=== PATIENT | male | born 1950 | race Caucasian/White ===

== ENCOUNTER 2019-04-20 07:24 | Outpatient (CLI) | payer MEDICARE, SELFPAY ==
--- NOTE | 2019-04-20 07:38 | ECHO_ITS ---
Patient Info Name: Rudy Cheung Age: 69 years : 1950 Gender: Male Ht: 76 in Wt: 210 lbs BSA: 2.27 m2 HR: 70 bpm BP: 135 / 87 mmHg Technical Quality: Good Exam Date: 04/20/2019 7:48 AM Exam Location: [facility] Patient Status: Outpatient Admit Date: 04/20/2019 Staff Ordering Physician: Jigna Dutta PAC Director Of Retail: Rocky Simmons RDCS, RT Attending Provider: Jigna Dutta PAC Referring Physician: Luzmaria MUSA; Exam Type: CA echo doppler color flow Study Info Indications R01.1 - Cardiac murmur, unspecified Complete two-dimensional, color flow and Doppler transthoracic echocardiogram is performed. Summary 1. Left ventricular systolic function is normal, estimated at 65-70%. 2. There is mildly increased left ventricular wall thickness. 3. The left ventricular diastolic function is grade I diastolic dysfunction. 4. E/e' 6 is not elevated. 5. Global lontiduinal strain is slightly abnormal at -16.8%. 6. There is severe aortic valve sclerosis. 7. There is mild aortic valve stenosis with a peak velocity of 175 cm/s, mean gradient of 4 mmHg, and aortic valve area of 1.8 cm2. 8. Moderate mitral annular calcification. 9. The aortic root size at the sinus of Valsalva is mildly dilated at 4.2 cm. Left Ventricle E/e' 6 is not elevated. Global lontiduinal strain is slightly abnormal at -16.8%. Left ventricular systolic function is normal, estimated at 65-70%. There is mildly increased left ventricular wall thickness. The left ventricular diastolic function is grade I diastolic dysfunction. Right Ventricle Right ventricular chamber dimension is normal. Right ventricular systolic function is normal. Left Atria Left atrial chamber dimension is normal. Right Atria Right atrial chamber dimension is normal. Aortic Valve The aortic valve is trileaflet. There is severe aortic valve sclerosis. There is mild aortic valve stenosis with a peak velocity of 175 cm/s, mean gradient of 4 mmHg, and aortic valve area of 1.8 cm2. There is no aortic valve regurgitation. Pulmonic Valve There is no pulmonic regurgitation. Mitral Valve Moderate mitral annular calcification. There is no mitral valve stenosis. There is no mitral valve regurgitation. Tricuspid Valve There is no tricuspid valve regurgitation. Pericardium/Pleural There is no pericardial effusion. Inferior Vena Cava Normal inferior vena cava with >50% collapse upon inspiration consistent with normal right atrial pressure, 5 mmHg. Aorta The aortic root size at the sinus of Valsalva is mildly dilated at 4.2 cm. Left Ventricular Outflow Tract Name Value Normal LVOT 2D LVOT Diameter 2.0 cm LVOT Doppler LVOT Peak Gradient 4 mmHg LVOT Mean Gradient 2 mmHg LVOT VTI 20 cm LVOT VTI/AV VTI Ratio 0.6 LVOT Stroke Volume 61 ml LVOT CO 4.0 l/min LVOT CI 1.8 l/min/m2 Pulmonic Valve
--- NOTE | 2019-04-20 08:51 | EST_ITS ---
Patient Info Name: Rudy Cheung Age: 69 years : 1950 Gender: Male Ht: 76 in Wt: 210 lbs BSA: 2.27 m2 Exam Date: 04/20/2019 9:47 AM Exam Location: [facility] Patient Status: Outpatient Admit Date: 04/20/2019 Staff Ordering Physician: Jigna Dutta Attending Provider: Jigna Dutta Exercise Technologist: Mima Eaton RDCS Exercise Physician: Juan A Crowell DO Exam Type: CA stress test treadmill Study Info Indications R07.89 - Other chest pain A treadmill exercise stress test was performed. Summary 1. 1. Negative Vamsi exercise stress test for ischemic ST changes by ECG criteria. 2. 2. Good functional capacity, achieving 9 METs of workload. 3. 3. Baseline hypertension with hypertensive response to exercise. 4. 4. Appropriate HR response to exercise. 5. 5. Appropriate HR recovery at 1 minute post exercise. 6. 6. No imaging with stress testing. 7. 7. Patient informed of the above results. Protocol: Vamsi Stress ECG Details Stage: REST Duration (min): 1 min : 22 sec Speed (mph): 0.0 Grade (%): 0 HR (bpm): 73 SBP (mmHg): 155 DBP (mmHg): 91 METS: --- Stage: REST Duration (min): 10 min : 32 sec Speed (mph): 0.0 Grade (%): 0 HR (bpm): 73 SBP (mmHg): 155 DBP (mmHg): 91 METS: --- Stage: STAGE 1 Duration (min): 1 min : 0 sec Speed (mph): 1.7 Grade (%): 10 HR (bpm): 96 SBP (mmHg): 155 DBP (mmHg): 91 METS: --- Stage: STAGE 1 Duration (min): 2 min : 0 sec Speed (mph): 1.7 Grade (%): 10 HR (bpm): 98 SBP (mmHg): 155 DBP (mmHg): 91 METS: --- Stage: STAGE 1 Duration (min): 3 min : 0 sec Speed (mph): 1.7 Grade (%): 10 HR (bpm): 105 SBP (mmHg): 183 DBP (mmHg): 70 METS: --- Stage: STAGE 2 Duration (min): 1 min : 0 sec Speed (mph): 2.5 Grade (%): 12 HR (bpm): 111 SBP (mmHg): 183 DBP (mmHg): 70 METS: --- Stage: STAGE 2 Duration (min): 2 min : 0 sec Speed (mph): 2.5 Grade (%): 12 HR (bpm): 124 SBP (mmHg): 203 DBP (mmHg): 70 METS: --- Stage: STAGE 2 Duration (min): 3 min : 0 sec Speed (mph): 2.5 Grade (%): 12 HR (bpm): 128 SBP (mmHg): 203 DBP (mmHg): 70 METS: --- Stage: STAGE 3 Duration (min): 1 min : 0 sec Speed (mph): 3.4 Grade (%): 14 HR (bpm): 139 SBP (mmHg): 236 DBP (mmHg): 79 METS: --- Stage: STAGE 3 Duration (min): 1 min : 37 sec Speed (mph): 3.4 Grade (%): 14 HR (bpm): 142 SBP (mmHg): 221 DBP (mmHg): 78 METS: --- Stage: RECOVERY Duration (min): 0 min : 22 sec Speed (mph): 1.5 Grade (%): 0 HR (bpm): 141 SBP (mmHg): 221 DBP (mmHg): 78 METS: --- Stage: RECOVERY Duration (min): 1 min : 22 sec Speed (mph): 0.0 Grade (%): 0 HR (bpm): 116 SBP (mmHg): 220 DBP (mmHg): 66 METS: --- Stage:
== END 2019-04-20 07:25 | disposition home or self-care (01) ==
PROVIDERS: PCP Family Medicine; Visit Provider Physician Assistant Medical
DX: R01.1 Cardiac murmur, unspecified (principal); R07.89 Other chest pain
CPT/HCPCS: 93017; 93306

== ENCOUNTER 2019-10-01 10:57 | Inpatient (IN) | payer MEDICARE, SELFPAY ==
--- NOTE | ~2019-10-01 | CT_ITS ---
EXAMINATION: CT abdomen pelvis w con DATE: 10/01/2019 13:17 INDICATION: Epigastric abdominal pain. TECHNIQUE: Computed tomography (CT) of the abdomen and pelvis was performed with 100 mL Omnipaque 350 intravenous contrast. Automated exposure control and iterative reconstruction technique were employe d. The dose-length product was 640.45 mGy-cm. COMPARISON: None. FINDINGS: The visualized portions of the lung bases demonstrate mild atelectasis. No pleural effusion . The heart size is normal. No pericardial effusion. The liver, gallbladder, spleen, pancreas, adrena l glands, and kidneys are normal. The prostate is mildly enlarged. There is diverticulosis of the col on without evidence of diverticulitis. The appendix is normal. There is fat stranding at the root of the small bowel mesentery. There are no pathologically enlarged lymph nodes. There is no free intrape ritoneal fluid. Prominent fat in left inguinal canal may be a small hernia. There is moderate lumbar spondylosis. IMPRESSION: 1. Fat stranding at the root of the small bowel mesentery, consistent with edema versus inflammation (mesenteric panniculitis). Reviewed, dictated and finalized at location A. IMPRESSION: 1. Fat stranding at the root of the small bowel mesentery, consistent with michael a versus inflammation (mesenteric panniculitis).
[2019-10-01 11:00] VITALS: BP 160/89; PULSE 71; RESP 20; TEMP 36.8; O2SAT 98
--- NOTE | 2019-10-01 11:15 | ECG_ITS ---
Measurements Intervals [place] Rate: 71 P: 49 SD: 185 QRS: 34 QRSD: 93 T: 45 QT: 407 QTc: 445 Interpretive Statements SINUS RHYTHM NORMAL ECG Electronically Signed On 10-01-2019 12:43:53 CDT by Juan A Crowell D.O.
[2019-10-01 11:34] LABS: Basophils Absolute Auto 0.1 K/mm3 (0.0-0.1); Basophils Percent Auto 1.3 % (0.2-1.2); Eosinophils Absolute Auto 0.5 K/mm3 (0-0.3); Eosinophils Percent Auto 8.8 % (0-4.4); Hemoglobin 15.8 g/dL (14.0-18.0); Immature Granulocyte Absolute 0.02 K/mm3 (0.00-0.031); Immature Granulocyte Percent A 0.3 % (0-0.5); Lymphocytes Absolute Auto 1.62 K/mm3 (0.9-3.2); Mean Corpuscular HGB Conc 34.3 g/dl (32-36); Mean Corpuscular Volume 90.4 fl (80-100); Monocytes Absolute Auto 0.4 K/mm3 (0.1-0.6); Monocytes Percent Auto 6.3 % (2.6-8.5); Neutrophils Absolute Auto 3.4 K/mm3 (1.3-6.7); Neutrophils Percent Auto 56.3 % (45.5-73.1); Platelet Count Result 218 k/mm3 (150-375); Red Blood Count 5.09 M/mm3 (4.6-6.20); Red Cell Distribution Width 12.8 % (11.5-14.5)
[2019-10-01 11:36] LABS: Add Urine Microscopic? NO; Appearance Urine Clear (Clear); Bilirubin Urine Negative (Negative); Blood Urine Negative (Negative); Color Urine Yellow (Yellow); Glucose Urine UA Negative (Negative); Ketones Urine Negative (Negative); Leukocyte Esterase Ur Negative LEU/UL (Negative); Nitrate Urine Negative (Negative); Protein Urine Negative (Negative); Specific Grav Ur 1.014 (1.001-1.035); Urobilinogen Urine Negative mg/dL (<2.0)
[2019-10-01 11:44] LABS: Alanine Aminotransferase 21 U/L (4-50); Albumin Level 4.5 g/dL (3.5-5.1); Alkaline Phosphatase 55 U/L (38-126); Aspartate Amino Transferase 28 U/L (17-59); Bilirubin,Total 0.7 mg/dL (0.2-1.3); Blood Urea Nitrogen 16 mg/dL (9-20); Carbon Dioxide 21 mmol/L (22-30); Chloride 106 mmol/L (98-107); Estimated CRCL calculation 71 ml/min; Estimated Glomerular Filt Rate > 60; Glucose 151 mg/dL (75-110); Potassium 3.8 mmol/L (3.4-5.0); Sodium 137 mmol/L (137-145)
[2019-10-01 11:55] LABS: Lipase 3932 U/L (23-300)
[2019-10-01] MEDS: SODIUM CHLORIDE 0.9% IV 1,000 ML 999 ML IV CONT (12:12)
--- NOTE | 2019-10-01 13:34 | ED.ABDPAIN ---
HPI - Abdominal Pain General Chief Complaint: Abdominal Pain Stated Complaint: DIZZINESS Time Seen by Provider: 10/01/19 11:24 History of Present Illness HPI narrative: Patient is a 69-year-old male who presents the ER with abdominal pain. Symptoms have been intermittent over the last week. Worse when he eats and feels full in his upper abdomen. Today the pain was severe enough where he became lightheaded and weak, his reports he became very pale. He reports he developed numbness and tingling his hands and his face when this occurred. Reports he was drinking alcohol last night and drinks alcohol often. No diarrhea. He does report that he had some bright red blood in his stool today but has history of hemorrhoids and has been applying medication for hemorrhoids recently. Related Data Home Medications Medication Instructions Recorded Confirmed No Home Medications 10/01/19 10/01/19 Allergies Allergy/AdvReac Type Severity Reaction Status Date / Time No Known Allergies Allergy Unknown Verified 04/10/19 09:25 Review of Systems Review of Systems: All systems reviewed & are unremarkable except as noted in HPI and below Constitutional: Constitutional: Denies chills, Denies fever(s) and Reports weakness ENT: Denies nasal congestion and Denies sore throat Cardiovascular: Cardiovascular: Denies chest pain, Denies rapid heart rate and Denies radiating jaw, neck or arm pain Respiratory: Respiratory: Denies cough, Denies dyspnea and Denies wheezing Gastrointestinal: Gastrointestinal: Reports abdominal pain, Denies diarrhea, Reports nausea and Denies vomiting Comments: blood streaked stool. PMFSH Family History Family History (Updated 10/01/19 @ 16:57 by Simin Stone RN) Father Hypertension Mother Hypertension Sibling Myocardial infarct Social History Social History Smoking status: Current some day smoker Tobacco type: cigars Additional smoking assessment comments: patient states he smokes cigars every few years Alcohol intake: current Drinks per week: 21 Substance use: never Gender identity (if verbalized by the patient): Male Sexual Orientation (if Verbalized by the Patient): Straight or Heterosexual Spiritual care concerns: No Exam Narrative: Exam Narrative: GENERAL: Uncomfortable-appearing, well-nourished, and in no acute distress. HEAD: Normocephalic, atraumatic. ENT: Mucous membranes moist. CHEST: Clear to auscultation. No respiratory distress. HEART: Regular rate and rhythm. Normal peripheral pulses. ABDOMEN: Soft, nontender, nondistended. EXTREMITIES: Normal range of motion. No edema. SKIN: Warm, dry, no rash. NEURO: Alert and oriented x3. Course Course Emergency Course: Admit for observation hydration. Vital Signs Vital signs: Vital Signs Temperature 98.2 F 10/01/19 11:00 Pulse Rate 71 10/01/19 11:00 Respiratory Rate 20 10/01/19 11:00 Blood Pressure 160/89 H 10/01/19 11:00 Pulse Oximetry 98 10/01/19 11:00 Temperature 98.1 F 10/01/19 18:08 Pulse Rate 83 10/01/19 18:08 Respiratory Rate 16 10/01/19 18:08 Blood Pressure 155/76 H 10/01/19 18:08 Pulse Oximetry 98 10/01/19 18:08 MDM - Abdominal Pain Lab Data Result diagrams: 10/01/19 11:26 10/01/19 11:25 Labs: Lab Results 10/01/19 10/01/19 10/01/19 Range/Units 11:25 11:26 11:26 WBC 6.0 (4.5-10.0) K/mm3 RBC 5.09 (4.6-6.20) M/mm3 Hgb 15.8 (14.0-18.0) g/dL Hct 46.0 (42.0-52.0) % MCV 90.4 (80-100) fl MCH 31.0 (26-34) pg MCHC 34.3 (32-36) g/dl RDW 12.8 (11.5-14.5) % Plt Count 218 (150-375) k/mm3 MPV 10.0 (7.4-10.4) fl Immature Gran % (Auto) 0.3 (0-0.5) % Neut % (Auto) 56.3 (45.5-73.1) % Lymph % (Auto) 27.0 (18.3-44.2) % [place] % (Auto) 6.3 (2.6-8.5) % Eos % (Auto) 8.8 H (0-4.4) % Baso % (Auto) 1.3 H (0.2-1.2) % Lymp
[2019-10-01 14:02] VITALS: BP 160/93; PULSE 79; RESP 18; O2SAT 97
--- NOTE | 2019-10-01 16:54 | PC.NURSE ---
This patient, Rudy Cheung, was admitted to [facility] Surg Room 314-01. Patient/family oriented to hospital policies and general routines including ID bracelet, bed and alarms, visiting hours, pain management, procedures, bathroom and other care routines, personal items, smoking policy, room service/diet, and visiting hours. Valuables list has been completed. Information on how to activate the Rapid Response Team has been discussed. Patient/Family are encouraged to report perceived risks to care and to ask questions if they do not understand what they are told or what they should do.
[2019-10-01] MEDS: SODIUM CHLORIDE 0.9% IV 1,000 ML 200 ML IV CONT ×2 (17:16→20:56)
[2019-10-01 18:08] VITALS: BP 155/76; PULSE 83; RESP 16; TEMP 36.7; O2SAT 98
[2019-10-01 22:00] VITALS: BP 156/73; PULSE 66; RESP 16; TEMP 36.5; O2SAT 97
--- NOTE | 2019-10-01 23:29 | PM.IMHP ---
H&P: HPI History of Present Illness Chief complaint: Abdominal pain, dizziness and tingling Narrative: Date and time of patient contact: 10/01/2019 at 9:20 p.m. Rudy Cheung is a 69 year old male with a past medical history of hyperlipidemia and heavy alcohol use who presented to the ER with abdominal pain, dizziness and tingling. He admits that he has had intermittent generalized abdominal pain with some upper abdominal fullness for the last 2-3 weeks. He reports that this morning approximately 30 minutes after he ate breakfast he went to the bathroom and had a loose bowel movement. Bowel movement was blood streaked with a moderate amount of blood in the toilet. He has had infrequent symptoms similar to this in the past that was related to hemorrhoids. He has had to use medications for hemorrhoids recently. His last colonoscopy was approximately 10 years ago. Immediately after having a bowel movement he became nauseated, lightheaded, weak and felt as if he may pass out. His noted that he was pale. He also noted some numbness and tingling to his hands and face. His thought he may be having a heart attack brought him to the ER. He has a history of frequent and somewhat heavy alcohol use. His alcohol consumption increased significantly over the last couple of months since he has not been working due to COVID-19. Prior to the pandemic the patient reported that he would drink 2-3 beers a night and up to 68 beers on the weekends. Since the pandemic he has been drinking 2-3 beers a night with 2-3 shots of whiskey. Last night his brothers came over the and he drank 6-8 beers and several shots of whiskey. In hindsight he recognizes that his symptoms of abdominal discomfort do seem to correlate with the days that he has been drinking more alcohol. He reports that he feels as if he just over indulged yesterday. He denies any chest pain or shortness of breath. He has not had any cough or congestion. He reports that his pain was a 7/10 in intensity at its worst and is currently completely resolved. His nausea has completely resolved. Review of Systems Review of Systems: Narrative: 12 systems were reviewed with pertinent positives and negatives per HPI. Except as documented in the HPI, all other systems were reviewed and are negative. [facility] Past Medical History Medical History (Updated 10/01/19 @ 23:34 by Clarisa Cardenas DO) Aortic valve stenosis Mild noted on echocardiogram from March 2019 Mildly dilated aortic root 4.2 cm, EF 65-70%, grade 1 diastolic dysfunction Diastolic dysfunction Hypercholesterolemia Hypertensive response to exercise Surgical History Surgical History (Updated 10/01/19 @ 23:34 by Clarisa Cardenas DO) History of colonoscopy Patient reports normal colonoscopy in approximately 2009 History of detached retina repair Left eye Family History Family History (Updated 10/01/19 @ 16:57 by Simin Stone RN) Father Hypertension Mother Hypertension Sibling Myocardial infarct Social History Social History (Updated 10/01/19 @ 23:38 by Clarisa Cardenas DO) Social History: Primary care physician: Dr. Ismael Gomez Code status: Full code Smoking status: Current some day smoker Tobacco type: cigars Additional smoking assessment comments: patient states he smokes cigars every few years Alcohol intake: current Drinks per week: 21 Alcohol use details: He drinks 2-3 beers a day and several shots of whiskey. On the weekends he will drink a 6 pack or more along with some whiskey. Substance use: never Living arrangements: with family Additional living arrangements comments: The patient lives in [place] with his of 26 years. They have 4 adult children who are healthy. 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 Gender identity (if verbalized by the patient): Male Sexual Orientation (if Verbalized by
[2019-10-02] MEDS: SODIUM CHLORIDE 0.9% IV 1,000 ML 200 ML IV CONT ×2 (02:00→09:06)
[2019-10-02 06:00] VITALS: BP 140/72; PULSE 66; RESP 16; TEMP 36.2; O2SAT 99
[2019-10-02 06:14] LABS: Hematocrit 41.7 % (42.0-52.0); Mean Corpuscular HGB Conc 33.6 g/dl (32-36); Mean Corpuscular Hemoglobin 30.8 pg (26-34); Mean Corpuscular Volume 91.6 fl (80-100); Mean Platelet Volume 9.8 fl (7.4-10.4); Platelet Count Result 201 k/mm3 (150-375); Red Blood Count 4.55 M/mm3 (4.6-6.20); Red Cell Distribution Width 12.9 % (11.5-14.5)
[2019-10-02 06:26] LABS: Blood Urea Nitrogen 13 mg/dL (9-20); Calcium 8.1 mg/dL (8.4-10.2); Carbon Dioxide 24 mmol/L (22-30); Chloride 111 mmol/L (98-107); Estimated CRCL calculation 71 ml/min; Estimated Glomerular Filt Rate > 60; Glucose 101 mg/dL (75-110); Lipase 104 U/L (23-300); Sodium 138 mmol/L (137-145)
[2019-10-02] MEDS: ENOXAPARIN 40 MG/0.4 ML SYRINGE SUB-Q (08:21)
[2019-10-02 14:00] VITALS: BP 145/88; PULSE 58; RESP 16; TEMP 36.9; O2SAT 98
--- NOTE | 2019-10-02 14:43 | PM.DS ---
DS: Admitting Diagnosis Admitting Diagnosis Admitting Diagnosis: Acute pancreatitis without necrosis or infection, unspecified DS: Discharge Diagnosis Discharge Diagnosis (1) Acute pancreatitis: Code(s): K85.90 - Acute pancreatitis without necrosis or infection, unspecified Status: Acute (2) Alcohol abuse: Code(s): F10.10 - Alcohol abuse, uncomplicated Status: Acute (3) Elevated blood pressure reading without diagnosis of hypertension: Code(s): R03.0 - Elevated blood-pressure reading, without diagnosis of hypertension Status: Acute DS: Summary Hospital Course Reason for hospitalization: The patient is a 69-year-old Man with a history of hyperlipidemia and heavy alcohol use, who presented to the emergency room with epigastric abdominal pain. Patient states he drank a lot of beer and whiskey on Wednesday and then on Wednesday morning he woke having abdominal pain. He had a bowel movement and afterwards had some numbness and tingling to his arms and felt lightheaded and nauseous and decided to come to the emergency room. Initial vital signs showed temperature of 98.2?, blood pressure 160/89 heart rate 71, respiratory rate 20, oxygen saturation 98% on room air. Labs showed normal CBC with differential, normal CMP, other than elevated glucose at 151. Lipase was 3932. CT scan of abdomen showed fat stranding at the root of the small bowel mesentery, consistent with edema versus inflammation (mesenteric panniculitis), which is most likely secondary to acute pancreatitis versus gastroenteritis. The patient was admitted into the hospital, for IV fluids and placed NPO. This morning on the patient's labs his lipase normalized and he was advance from a clear liquid diet to a low-fat diet without any issues. The patient is back to his baseline and is ready to be discharged home. Educated patient to quit drinking alcohol to prevent further pancreatitis episodes and hospitalizations. Will have him follow-up with his primary care provider within 1 week of discharge. Consider starting the patient on a hypertensive agent because he has been having mildly elevated blood pressures while hospitalized. His recent echocardiogram also showed he has mild LVH which could be secondary to uncontrolled high blood pressure over a period time. The patient's symptoms resolved quicker than expected. Normally pancreatitis takes a few days to slowly advance there diet. Status at Discharge Cognitive/behavioral status at discharge: Stable, improved. Time Spent with Patient Time attestation: Total time spent providing and/or coordinating discharge services: Time spent: Greater than 30 minutes Exam Narrative: Exam Narrative: General: 69-year-old man laying flat in bed watching TV. Appears comfortable. In no acute distress. Skin: No jaundice or cyanosis. Good skin turgor. Neck: Full range of motion. Supple. Respiratory: Lungs are clear to auscultation bilaterally. No bony chest wall tenderness. Cardiovascular: The heart has a regular rate and rhythm without murmur. Lower extremities: No lower extremity edema. Distal pulses are easily palpated. No calf tenderness to palpation. Gastrointestinal: The abdomen is soft, nontender and nondistended with active bowel sounds. Psychiatric: Lucid and oriented. Memory intact. Neurologic: No focal deficits. Speech is clear. No facial drooping. DS: Data Data Completed and Pending Labs on day of discharge: Labs from last 24 hours 10/02/19 10/02/19 05:53 05:53 WBC 8.0 RBC 4.55 L Hgb 14.0 Hct 41.7 L MCV 91.6 MCH 30.8 MCHC 33.6 RDW 12.9 Plt Count 201 MPV 9.8 Sodium 138 Potassium 4.0 Chloride 111 H Carbon Dioxide 24 BUN 13 Creatinine 1.10 Estim Creat Clear Calc 71 Estimated GFR > 60 Glucose 101 Calcium 8.1 L Lipase 104 Discharge Plan Discharge Attending physician on dis
== END 2019-10-02 15:15 | disposition home or self-care (01) | DRG 440 ==
LOC: ANHED 14:11 → ANH3MEDSUR 15:39
PROVIDERS: Internal Medicine; Admitting Provider Family Medicine; Emergency Provider Emergency Medicine; PCP Family Medicine; Visit Provider Physician Assistant
DX: K85.20 Alcohol induced acute pancreatitis without necrosis or infection (principal); F10.10 Alcohol abuse, uncomplicated; R03.0 Elevated blood-pressure reading, without diagnosis of hypertension; E78.5 Hyperlipidemia, unspecified; F17.290 Nicotine dependence, other tobacco product, uncomplicated
CPT/HCPCS: 36415; 74177; 80048; 80053; 81003; 83690; 85025; 85027; 93005; 96360; 99285; J1650; J7030; Q9967

== ENCOUNTER → 2020-08-29 15:29 | Outpatient (CLI) | payer MEDICARE, SELFPAY ==
--- NOTE | ~2020-08-29 | XR_ITS ---
XR hand LT min 3V 08/29/2020 15:53 Indication: Left hand pain Procedure: 3 views left hand Comparison: No prior studies for comparison. Findings: There is mild polyarticular osteoarthritis no fracture or traumatic malalignment. No focal soft tissue abnormality. No foreign bodies. 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 Reviewed, dictated and finalized at location A. 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
== END ==
PROVIDERS: PCP Family Medicine; Visit Provider Nurse Practitioner Family
DX: M19.042 Primary osteoarthritis, left hand (principal)
CPT/HCPCS: 73130

== ENCOUNTER → 2021-03-11 10:45 | Outpatient (CLI) | payer MEDICARE, SELFPAY ==
[2021-03-12 02:05] LABS: SARS-CoV-2 RNA PCR Negative
== END ==
PROVIDERS: PCP Family Medicine; Visit Provider Nurse Practitioner Family
DX: R68.89 Other general symptoms and signs (principal); Z20.822 Contact with and (suspected) exposure to COVID-19
CPT/HCPCS: C9803; U0003; U0005

== ENCOUNTER 2021-08-04 00:44 | Day surgery (SDC) | payer MEDICARE, SELFPAY ==
[2021-07-14 15:06] VITALS: BMI 25.4
--- NOTE | 2021-08-01 14:48 | PM.HPGS ---
History of Present Illness History of Present Illness Consent: Risks, benefits, and alternatives have been discussed and questions answered. Patient agrees to proceed with procedure. Chief complaint: neoplasm screening Narrative: Rudy Cheung is a 71 year old male Referred for colon cancer screening. Review of Systems Review of Systems: All systems reviewed & are unremarkable except as noted in HPI and below PMFSH Past Medical History Medical History Aortic valve stenosis Mild noted on echocardiogram from March 2019 Mildly dilated aortic root 4.2 cm, EF 65-70%, grade 1 diastolic dysfunction BMI 26.0-26.9,adult Diastolic dysfunction Hypercholesterolemia Hypertensive response to exercise Pancreatitis Trigger finger, right ring finger Trigger thumb of left hand Surgical History Surgical History History of colonoscopy Patient reports normal colonoscopy in approximately 2009 History of detached retina repair Left eye Family History Family History Father Hypertension Mother Hypertension Sibling Myocardial infarct Faternal twin brother Social History Social History Social History: He is 1 of 8 children. His foot terminal twin brother has a history of ND. All of his other siblings are reportedly healthy. His parents lived to age is 89 and 90. Primary care physician: Dr. Ismael Gomez Code status: Full code Smoking status: Never smoker Tobacco type: cigars Additional smoking assessment comments: patient states he smokes cigars every few years Alcohol intake: current Drinks per week: 7 Alcohol use details: He drinks 2-3 beers a day and several shots of whiskey. On the weekends he will drink a 6 pack or more along with some whiskey. Substance use: never Substance use type: does not use Living arrangements: other Additional living arrangements comments: The patient lives in [place] with his of 26 years. They have 4 adult children who are healthy. 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 Gender identity (if verbalized by the patient): Male Sexual Orientation (if Verbalized by the Patient): Straight or Heterosexual Spiritual care concerns: No Meds Home Medications and Allergies Home Medications Medication Instructions Recorded Confirmed Type No Home Medications 07/14/21 07/14/21 History Allergies Allergy/AdvReac Type Severity Reaction Status Date / Time No Known Allergies Allergy Unknown Verified 08/04/21 06:58 Exam Const: General: alert Orientation/consciousness: patient oriented x3 Resp: Auscultation: clear to auscultation bilaterally Cardio: Rhythm: regular rhythm GI: GI Palp: Yes Soft to palpation and No Tenderness to palpation present (GI) Neuro: General: patient oriented x3 Assessment and Plan Assessment and plan (1) Screening for colon cancer: Code(s): Z12.11 - Encounter for screening for malignant neoplasm of colon Status: Acute Assessment and Plan: Colonoscopy with possible biopsy or polypectomy or cautery or injection of substances.
[2021-08-04 06:59] VITALS: BP 140/82; PULSE 76; RESP 18; TEMP 36.6; O2SAT 99
[2021-08-04] MEDS: LACTATED RINGERS 1,000 ML 150 ML IV CONT (07:14)
--- NOTE | 2021-08-04 07:39 | WPDANESEPPF ---
Anes - Initial Pre Proc Eval Procedure: Operation Date: 08/04/21 08:00 Proposed Procedures p Screening Colonoscopy - Sharath Jonas MD Date/Time: 08/04/21 07:39 Surgeon: Sharath Jonas MD Pre Op Diagnosis: neoplasm screening Patient Data Age: 71 Gender: M Height: 1.93 m Weight: 91.9 kg Last Vital Signs Temp 97.8 F 08/04/21 06:59 Pulse 76 08/04/21 06:59 Resp 18 08/04/21 06:59 BP 140/82 08/04/21 06:59 Pulse Ox 99 08/04/21 06:59 Allergies Allergy/AdvReac Type Severity Reaction Status Date / Time No Known Allergies Allergy Unknown Verified 08/04/21 06:58 Home Medications Medication Instructions Recorded Confirmed Type No Home Medications 07/14/21 07/14/21 History Patient hx anesthesia problems: none Family hx anesthesia problems: none Results Review: All pre-operative results and documents have been reviewed as part of the pre-operative evaluation. [facility] Past Medical History Medical History Aortic valve stenosis Mild noted on echocardiogram from March 2019 Mildly dilated aortic root 4.2 cm, EF 65-70%, grade 1 diastolic dysfunction BMI 26.0-26.9,adult Diastolic dysfunction Hypercholesterolemia Hypertensive response to exercise Pancreatitis Trigger finger, right ring finger Trigger thumb of left hand Surgical History Surgical History History of colonoscopy Patient reports normal colonoscopy in approximately 2009 History of detached retina repair Left eye Family History Family History Father Hypertension Mother Hypertension Sibling Myocardial infarct Faternal twin brother Social History Social History Social History: He is 1 of 8 children. His foot terminal twin brother has a history of [place]. All of his other siblings are reportedly healthy. His parents lived to age is 89 and 90. Primary care physician: Dr. Ismael Gomez Code status: Full code Smoking status: Never smoker Tobacco type: cigars Additional smoking assessment comments: patient states he smokes cigars every few years Alcohol intake: current Drinks per week: 7 Alcohol use details: He drinks 2-3 beers a day and several shots of whiskey. On the weekends he will drink a 6 pack or more along with some whiskey. Substance use: never Substance use type: does not use Living arrangements: other Additional living arrangements comments: The patient lives in [place] with his of 26 years. They have 4 adult children who are healthy. 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 Gender identity (if verbalized by the patient): Male Sexual Orientation (if Verbalized by the Patient): Straight or Heterosexual Spiritual care concerns: No Anes - Eval Final PreProcedure Day of Procedure 08/04/21 07:39 Patient weight: normal Heart: regular rate and rhythm and murmur Lungs: clear to auscultation Airway: Mallampati scale class II Neurological: alert and oriented Last oral intake: >/= 8 hours ASA classification: III Emergent: no Anesthetic plan: proceed Anesthesia type and monitoring: general GIVS and standard monitoring Results Review: All pre-operative results and documents have been reviewed as part of the pre-operative evaluation. Informed Consent: The patient's anesthetic plan and its attendant risks and benefits were discussed with the patient/family/POA. Questions were solicited and answers provided to the satisfaction of the patient/family/POA.
[2021-08-04 08:17] VITALS: BP 126/84; PULSE 71; RESP 13; O2SAT 98
[2021-08-04 08:27] VITALS: BP 129/85; PULSE 70; RESP 12; O2SAT 98
[2021-08-04 08:37] VITALS: BP 134/89; PULSE 71; RESP 22; O2SAT 97
== END 2021-08-04 08:48 | disposition home or self-care (01) ==
PROVIDERS: PCP Family Medicine; Visit Provider Internal Medicine Gastroenterology
PROC: 0DJD8ZZ Inspection of Lower Intestinal Tract, Via Natural or Artificial Opening Endoscopic (ICD-10-PCS; CPT 45378; principal; 2021-08-04 08:00)
DX: Z12.11 Encounter for screening for malignant neoplasm of colon (principal); K64.8 Other hemorrhoids; K57.30 Diverticulosis of large intestine without perforation or abscess without bleeding; E78.00 Pure hypercholesterolemia, unspecified; I35.0 Nonrheumatic aortic (valve) stenosis; Z72.0 Tobacco use
CPT/HCPCS: G0121; J2704; J7120

== ENCOUNTER → 2022-07-07 11:14 | Outpatient (CLI) | payer MEDICARE, SELFPAY ==
--- NOTE | ~2022-07-07 | XR_ITS ---
Cervical Spine: AP, lateral, open-mouth views Clinical History: Pain Findings: The normal lordotic curve is maintained. No fracture identified. Minimal grade 1 retrolisth esis of C3 over C4 noted. There is moderate to advanced degenerative disc narrowing at C5-C6 and C6-C 7. There is uncovertebral degenerative change and facet joint degenerative change from C3 through C6. Pre-vertebral soft tissues are unremarkable. Impression: Moderate degenerative spondylosis, as above. Minimal grade 1 retrolisthesis of C3 over C4. Reviewed, dictated and finalized at location M. Impression: Moderate degenerative spondylosis, as above. Minimal grade 1 retrolisthesis of C3 over C4.
== END ==
PROVIDERS: PCP Family Medicine; Visit Provider Physician Assistant Medical
DX: M47.892 Other spondylosis, cervical region (principal); M43.12 Spondylolisthesis, cervical region
CPT/HCPCS: 72040

== ENCOUNTER 2022-07-28 08:33 | Outpatient (CLI) | payer MEDICARE, SELFPAY ==
[2022-07-28 09:13] LABS: Hematocrit 46.5 % (42.0-52.0); Hemoglobin 15.7 g/dL (14.0-18.0); Mean Corpuscular HGB Conc 33.8 g/dl (32-36); Mean Corpuscular Hemoglobin 30.7 pg (26-34); Mean Corpuscular Volume 90.8 fl (80-100); Mean Platelet Volume 9.7 fl (7.4-10.4); Platelet Count Result 228 k/mm3 (150-375); Red Blood Count 5.12 M/mm3 (4.6-6.20); Red Cell Distribution Width 13.1 % (11.5-14.5); White Blood Count 5.1 K/mm3 (4.5-10.0)
[2022-07-28 09:25] LABS: Alanine Aminotransferase 35 U/L (6-50); Albumin Level 4.4 g/dL (3.5-5.1); Alkaline Phosphatase 50 U/L (38-126); Amylase 63 U/L (30-110); Anion Gap 5 mmol/L (8-16); Aspartate Amino Transferase 37 U/L (17-59); Bilirubin,Total 0.6 mg/dL (0.2-1.3); Blood Urea Nitrogen 16 mg/dL (9-20); Calcium 8.9 mg/dL (8.4-10.2); Carbon Dioxide 27 mmol/L (22-30); Chloride 107 mmol/L (98-107); Cholesterol 227 mg/dL (0-200); Estimated Glomerular Filt Rate 60; Glucose 118 mg/dL (65-110); HDL Direct 31 mg/dL; Lipase 68 U/L (23-300); Potassium 4.3 mmol/L (3.4-5.0); Sodium 139 mmol/L (137-145); Triglycerides 226 mg/dL (<150)
[2022-07-28 09:37] LABS: LDL Cholesterol Direct 129 mg/dL
[2022-07-28 09:56] LABS: Prostate Specific Antigen 2.3 ng/mL (< OR = 4.0)
[2022-07-28 10:19] LABS: Vitamin D 25 Hydroxy 34.4 ng/mL
[2022-07-30 07:43] LABS: Hemoglobin A1C 5.9 % (<5.7)
[2022-08-02 16:06] LABS: Testosterone Free 83.2 pg/mL (30.0-135.0); Testosterone Total 607 ng/dL (250-1100)
== END 2022-07-28 08:34 | disposition home or self-care (01) ==
PROVIDERS: PCP Family Medicine; Visit Provider Nurse Practitioner Family
DX: K85.90 Acute pancreatitis without necrosis or infection, unspecified (principal); R79.89 Other specified abnormal findings of blood chemistry; Z12.5 Encounter for screening for malignant neoplasm of prostate; Z13.29 Encounter for screening for other suspected endocrine disorder; I10 Essential (primary) hypertension
CPT/HCPCS: 36415; 80053; 80061; 82150; 82306; 83036; 83690; 84153; 84402; 84403; 84443; 85027; G0103

== ENCOUNTER 2023-03-07 10:33 | Emergency (ER) | payer MEDICARE, SELFPAY ==
[2023-03-07 10:59] VITALS: BP 179/98; PULSE 72; RESP 16; TEMP 36.8; O2SAT 98
--- NOTE | 2023-03-07 11:15 | ED.URI ---
HPI - URI/Sore Throat General Chief Complaint: Upper Respiratory Infection Stated Complaint: tired,sinus drainage,bp high Time Seen by Provider: 03/07/23 11:46 Source: patient and RN notes reviewed Mode of arrival: ambulatory Limitations: no limitations History of Present Illness HPI Narrative: 9-year-old male presents with concern for fatigue, sinus drainage, increased blood pressure. Reports symptoms started about 2 and half weeks ago. He denies any particular cough, sinus congestion ear pain, sore throat. He reports he has appointment with his doctor on Wednesday, he does wanted to see if he had COVID. MD elicited complaint: other (Fatigue) Related Data Allergies Allergy/AdvReac Type Severity Reaction Status Date / Time No Known Allergies Allergy Unknown Verified 03/07/23 10:51 Review of Systems Review of Systems: CONSTITUTIONAL: Reports malaise, fatigue. Denies chills, sweats, or fever. EYES: Denies visual changes, redness, or discharge. ENT: Reports rhinorrhea. Denies congestion, sinus pain, otalgia and sore throat. CARDIOVASCULAR: Denies chest pain, palpitations, or edema. RESPIRATORY: Denies cough. Denies dyspnea. GASTROINTESTINAL: Denies abdominal pain, nausea, vomiting, diarrhea SKIN: Denies rash or itching. MUSCULOSKELETAL: Denies myalgia. NEUROLOGIC: Denies headache. All systems reviewed & are unremarkable except as noted in HPI and below [facility] Past Medical History Medical History Aortic valve stenosis Mild noted on echocardiogram from March 2019 Mildly dilated aortic root 4.2 cm, EF 65-70%, grade 1 diastolic dysfunction BMI 26.0-26.9,adult Diastolic dysfunction Hypercholesterolemia Hypertensive response to exercise Pancreatitis Trigger finger, right ring finger Trigger thumb of left hand Surgical History Surgical History History of colonoscopy Patient reports normal colonoscopy in approximately 2009 History of detached retina repair Left eye Family History Family History Father Hypertension Mother Hypertension Head injury Alzheimer's disease Sibling Myocardial infarct Faternal twin brother Sibling Acute myocardial infarction Social History Social History (Reviewed 07/23/22 @ 09:36 by HALLEY Briggs Social History: He is 1 of 8 children. His foot terminal twin brother has a history of [place]. All of his other siblings are reportedly healthy. His parents lived to age is 89 and 90. Primary care physician: Dr. Ismael Gomez Code status: Full code Smoking status: Former smoker Tobacco type: cigars Second hand tobacco smoke exposure: Yes Additional smoking assessment comments: patient states he smokes cigars every few years Alcohol intake: current Drinks per week: 7 Alcohol use details: He drinks 2-3 beers a day and several shots of whiskey. On the weekends he will drink a 6 pack or more along with some whiskey. Substance use: never Substance use type: does not use Lack of Transportation: No Lack of Food: Never True Current Housing: I Have Housing Concerned About Future Housing: No Difficulty Paying Gas/Electric Bills: No Difficulty Paying for Meds: No Currently Unemployed: No Education: Bachelor's Degree Difficulty w/ Childcare or Family Care: No Living arrangements: with family Additional living arrangements comments: The patient lives in [place] with his of 26 years. They have 4 adult children who are healthy. 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 Gender identity (if verbalized by the patient): Male Sexual Orientation (if Verbalized by the Patient): Straight or Heterosexual Spiritual care concerns: No Comm
== END 2023-03-07 12:02 | disposition home or self-care (01) ==
PROVIDERS: Emergency Provider Nurse Practitioner; PCP Family Medicine
DX: R53.83 Other fatigue (principal); Z20.822 Contact with and (suspected) exposure to COVID-19; I35.0 Nonrheumatic aortic (valve) stenosis; E78.00 Pure hypercholesterolemia, unspecified
CPT/HCPCS: 87426; 87804; 99213; C9803; G0463

== ENCOUNTER 2023-03-13 08:45 | Outpatient (CLI) | payer MEDICARE, SELFPAY ==
[2023-03-13 09:11] LABS: Hematocrit 48.4 % (42.0-52.0); Hemoglobin 15.6 g/dL (14.0-18.0); Mean Corpuscular HGB Conc 32.2 g/dl (32-36); Mean Corpuscular Hemoglobin 30.8 pg (26-34); Mean Corpuscular Volume 95.5 fl (80-100); Mean Platelet Volume 9.2 fl (7.4-10.4); Platelet Count Result 246 k/mm3 (150-375); Red Blood Count 5.07 M/mm3 (4.6-6.20); Red Cell Distribution Width 12.5 % (11.5-14.5); White Blood Count 7.4 K/mm3 (4.5-10.0)
[2023-03-13 10:10] LABS: Vitamin D 25 Hydroxy 34.4 ng/mL
[2023-03-13 11:16] LABS: Alanine Aminotransferase 27 U/L (6-50); Albumin Level 4.3 g/dL (3.5-5.1); Alkaline Phosphatase 51 U/L (38-126); Anion Gap 9 mmol/L (8-16); Aspartate Amino Transferase 31 U/L (17-59); Bilirubin,Total 0.6 mg/dL (0.2-1.3); Blood Urea Nitrogen 18 mg/dL (9-20); Calcium 9.6 mg/dL (8.4-10.2); Carbon Dioxide 26 mmol/L (22-30); Chloride 105 mmol/L (98-107); Cholesterol 252 mg/dL (0-200); Estimated Glomerular Filt Rate 60; Glucose 113 mg/dL (65-110); HDL Direct 28 mg/dL; Potassium 4.6 mmol/L (3.4-5.0); Sodium 140 mmol/L (137-145); Triglycerides 175 mg/dL (<150)
[2023-03-13 11:27] LABS: LDL Cholesterol Direct 153 mg/dL
[2023-03-13 11:44] LABS: Prostate Specific Antigen 2.1 ng/mL (< OR = 4.0)
[2023-03-16 08:13] LABS: CMV IgM Antibody <30.00 AU/mL (<30.00)
[2023-03-17 15:42] LABS: CMV IgG Antibody <0.60 U/mL (<0.60)
[2023-03-17 19:36] LABS: EBV Nuclear Ab Antibody <18.00 U/mL (<18.00); EBV Nuclear Ab Interpretation Recent; EBV Virus Capsid Ag IgM Ab <36.00 U/mL (<36.00)
== END 2023-03-13 08:46 | disposition home or self-care (01) ==
PROVIDERS: PCP Family Medicine; Visit Provider Nurse Practitioner Family
DX: R53.83 Other fatigue (principal); E55.9 Vitamin D deficiency, unspecified; I10 Essential (primary) hypertension; Z12.5 Encounter for screening for malignant neoplasm of prostate; F10.10 Alcohol abuse, uncomplicated; E78.00 Pure hypercholesterolemia, unspecified
CPT/HCPCS: 36415; 80053; 80061; 82306; 84153; 84443; 85027; 86644; 86645; 86664; 86665; G0103

== ENCOUNTER 2023-07-14 09:46 | Outpatient (CLI) | payer MEDICARE, SELFPAY ==
--- NOTE | ~2023-07-14 | XR_ITS ---
EXAMINATION: XR lumbar spine 2-3V DATE: 07/14/2023 10:01 INDICATION: Anesthesia of skin. TECHNIQUE: 3 views of the lumbar spine including standing views were obtained. COMPARISON: CT abdomen and pelvis 10/01/2019 FINDINGS: There is 8 degrees levocurvature of lumbar spine. S1 is a transitional segment. There is 3 mm retrolisthesis of L2 on L3 and L3 on L4. Vertebral body heights are normal. There is mildly decrea sed disc height at L3-L4 and moderately decreased disc height at L5-S1. There is multilevel severe fa cet joint osteoarthritis. IMPRESSION: 1. Moderate lumbar spondylosis. Reviewed, dictated and finalized at location E.
== END 2023-07-14 09:47 ==
PROVIDERS: PCP Family Medicine; Visit Provider Physician Assistant
DX: R20.0 Anesthesia of skin (principal); R20.2 Paresthesia of skin; M47.896 Other spondylosis, lumbar region
CPT/HCPCS: 72100

== ENCOUNTER 2023-08-11 13:12 | Outpatient (CLI) | payer MEDICARE, SELFPAY ==
--- NOTE | 2023-08-11 14:20 | NEURO_ITS ---
Impression: # Complains of numbness in lower extremities. Non-diabetic. # Motor/Sensory axonal neuropathy. # Mildly abnormal needle/EMG. # Clinical correlation recommended. Nerve Conduction Studies Anti Sensory Summary Table Stim Site NR Peak (ms) P-T Amp (?V) Site1 Site2 Delta-P (ms) Dist (cm) Woody (m/s) Left Sup Fibular Anti Sensory (Ant Lat Mall) NO RESPONSE 14 cm NR 14 cm Ant Lat Mall 16.0 Right Sup Fibular Anti Sensory (Ant Lat Mall) 14 cm 3.4 15.1 14 cm Ant Lat Mall 3.4 16.0 47 Left Sural Anti Sensory (Lat Mall) NO RESPONSE Calf NR Calf Lat Mall 16.0 Right Sural Anti Sensory (Lat Mall) NO RESPONSE Calf NR Calf Lat Mall 16.0 Motor Summary Table Stim Site NR Onset (ms) O-P Amp (mV) Site1 Site2 Delta-0 (ms) Dist (cm) Woody (m/s) Left Peroneal Motor (Vastus Med) Ankle 4.4 2.2 Popit Ankle 11.6 47.0 41 Popit 16.0 5.0 Right Peroneal Motor (Vastus Med) Ankle 4.1 6.7 Popit Ankle 11.8 48.0 41 Popit 15.9 5.0 Left Tibial Motor (Abd Monsivais Brev) Ankle 4.8 2.5 Knee Ankle 11.1 48.0 43 Knee 15.9 1.6 Right Tibial Motor (Abd Monsivais Brev) Ankle 4.8 1.0 Knee Ankle 12.7 51.0 40 Knee 17.5 1.9 F Wave Studies NR F-Lat (ms) L-R F-Lat (ms) Left Peroneal (Mrkrs) (EDB) 66.13 1.33 Right Peroneal (Mrkrs) (EDB) 67.46 1.33 Left Tibial (Mrkrs) (Abd Hallucis) 68.01 0.41 Right Tibial (Mrkrs) (Abd Hallucis) 68.41 0.41 EMG Side Muscle Nerve Root Ins Act Fibs Amp Dur Recrt Comment Right AntTibialis Dp Br Fibular L4-5 Nml Nml Nml Nml Nml Right Gastroc Tibial S1-2 Nml Nml Nml Nml Nml Right Fibularis Long Sup Br Fibular L5-S1 Nml Nml Nml Nml Nml Right Flex Dig Long Tibial L5-S2 Nml Nml Nml Nml Nml Right Ext Dig Brev Dp Br Fibular L5, S1 Nml Nml Nml >12ms +1 Left AntTibialis Dp Br Fibular L4-5 Nml Nml Nml Nml Nml Left Gastroc Tibial S1-2 Nml Nml Nml Nml Nml Left Fibularis Long Sup Br Fibular L5-S1 Nml Nml Nml Nml Nml Left Flex Dig Long Tibial L5-S2 Nml Nml Nml Nml Nml Left Ext Dig Brev Dp Br Fibular L5, S1 Nml Nml Nml >12ms +1 Right QuadratusFem QuadFemoris L4-5, S1 Nml Nml Nml Nml Nml Left QuadratusFem QuadFemoris L4-5, S1 Nml Nml Nml Nml Nml MTDD
== END 2023-08-11 13:13 | disposition home or self-care (01) ==
PROVIDERS: PCP Family Medicine; Visit Provider Physician Assistant
DX: R20.0 Anesthesia of skin (principal); R20.2 Paresthesia of skin
CPT/HCPCS: 95886; 95910

== ENCOUNTER 2023-12-22 06:59 | Outpatient (CLI) | payer MEDICARE, SELFPAY ==
[2023-12-22 07:51] LABS: Glucose Fasting 118 mg/dL
[2023-12-22 08:47] LABS: Glucose 1 Hour 240 mg/dL
[2023-12-22 09:01] LABS: Folic Acid > 20.0 ng/mL (2.76->20)
[2023-12-22 09:45] LABS: Glucose 2 Hour 204 mg/dL
[2023-12-23 08:54] LABS: Protein, Total 6.8 g/dL (6.1-8.1)
[2023-12-23 12:39] LABS: Homocysteine 10.2 umol/L (<11.4)
[2023-12-24 17:44] LABS: Vitamin B1 19 nmol/L (8-30)
[2023-12-25 11:48] LABS: Vitamin B6 42.1 ng/mL (2.1-21.7)
[2023-12-29 22:13] LABS: Immunofixation, Serum Normal pattern.
[2023-12-30 15:28] LABS: Methylmalonic Acid 156 nmol/L (69-390)
[2023-12-30 16:32] LABS: Albumin 4.2 g/dL (3.8-4.8); Alpha 1 Globulin 0.3 g/dL (0.2-0.3); Alpha 2 Globulin 0.7 g/dL (0.5-0.9); Beta 1 Globulin 0.5 g/dL (0.4-0.6); Gamma Globulin 0.9 g/dL (0.8-1.7)
== END 2023-12-22 07:00 | disposition home or self-care (01) ==
PROVIDERS: PCP Family Medicine; Visit Provider Psychiatry & Neurology Neurology
DX: G60.8 Other hereditary and idiopathic neuropathies (principal); R20.0 Anesthesia of skin; R20.2 Paresthesia of skin; Z13.1 Encounter for screening for diabetes mellitus
CPT/HCPCS: 36415; 82607; 82746; 82951; 83090; 83921; 84155; 84165; 84207; 84425; 86038; 86039; 86334

== ENCOUNTER 2024-05-03 07:47 | Outpatient (CLI) | payer MEDICARE, SELFPAY ==
--- OUTSIDE RECORDS SUMMARY | 2024-05-03 07:56 | XMS_ITS | Continuity of Care Document ---
Author Organization [facility] Address [address] [place] [address] [address] [address] [place] [address] Phone Care Team Providers Care Paper Sample Clerk Name Role Phone Celeste Godoy Unavailable Unavailable Advance Directives Directive Yes / No Effective Date File Name No Information Encounters Encounter Description Practice Location Reason(s) For Visit Diagnoses Date Provider Providers Copied on Encounter [facility], [id number] [place] [address] [address], [place], [place], [id number], [place] tel:[phone] [facility] [place] No Information [phone] Jayne Alonso. [address] , [address], [place], [address], [place]. tel:[phone] Family History Family Member Type Diagnosis Age At Onset No Information Payers Payer name Insurance type Covered constitution party ID Authoriza tion(s) No Information Social History Type Description Quantity Date Captured Comments Sex Male Smoking Status No Information Chief Complaint And Reason For Visit No Information Reason For Referral Reason For Referral No Information History Of Present Illness Encounter Date Complaint History Of Prese nt Illness No Information Functional Status Date Functional Assessmen t No Information Instructions Date Instruction Additional Infor mation No Information Assessments Type Assessment Date No Information Patient Care Teams Name Effective Dates (start - stop) Status Members No Information
[2024-05-03 08:13] LABS: Basophils Absolute Auto 0.1 K/mm3 (0.0-0.1); Basophils Percent Auto 1.2 % (0.2-1.2); Eosinophils Absolute Auto 0.3 K/mm3 (0-0.3); Eosinophils Percent Auto 4.7 % (0-4.4); Hematocrit 47.5 % (42.0-52.0); Hemoglobin 15.6 g/dL (14.0-18.0); Immature Granulocyte Absolute 0.02 K/mm3 (0.00-0.031); Immature Granulocyte Percent A 0.3 % (0-0.5); Lymphocytes Absolute Auto 1.73 K/mm3 (0.9-3.2); Mean Corpuscular HGB Conc 32.8 g/dl (32-36); Mean Corpuscular Hemoglobin 30.9 pg (26-34); Mean Corpuscular Volume 94.1 fl (80-100); Mean Platelet Volume 9.6 fl (7.4-10.4); Monocytes Absolute Auto 0.6 K/mm3 (0.1-0.6); Neutrophils Absolute Auto 3.7 K/mm3 (1.3-6.7); Neutrophils Percent Auto 57.8 % (45.5-73.1); Platelet Count Result 218 k/mm3 (150-375); Red Blood Count 5.05 M/mm3 (4.6-6.20); Red Cell Distribution Width 12.8 % (11.5-14.5); White Blood Count 6.4 K/mm3 (4.5-10.0)
[2024-05-03 08:49] LABS: Alanine Aminotransferase 28 U/L (6-50); Albumin Level 4.4 g/dL (3.5-5.1); Alkaline Phosphatase 49 U/L (38-126); Anion Gap 7 mmol/L (4-12); Aspartate Amino Transferase 30 U/L (17-59); Bilirubin,Total 0.6 mg/dL (0.2-1.3); Blood Urea Nitrogen 18 mg/dL (9-20); Calcium 9.5 mg/dL (8.4-10.2); Carbon Dioxide 26 mmol/L (22-30); Chloride 106 mmol/L (98-107); Estimated Glomerular Filt Rate > 60; Glucose 108 mg/dL (65-110); Potassium 4.7 mmol/L (3.4-5.0); Sodium 139 mmol/L (137-145)
[2024-05-03 09:11] LABS: Prostate Specific Antigen 2.2 ng/mL (< OR = 4.0)
[2024-05-03 09:46] LABS: Folic Acid 18.7 ng/mL (2.76->20)
[2024-05-04 16:37] LABS: Red Blood Cell Folate 541 ng/mL RBC (>280)
[2024-05-08 07:02] LABS: Vitamin B6 33.2 ng/mL (2.1-21.7)
== END 2024-05-03 07:48 | disposition home or self-care (01) ==
PROVIDERS: PCP Family Medicine; Visit Provider Nurse Practitioner Adult Health
DX: I10 Essential (primary) hypertension (principal); R01.1 Cardiac murmur, unspecified; E78.00 Pure hypercholesterolemia, unspecified; E78.5 Hyperlipidemia, unspecified; Z13.1 Encounter for screening for diabetes mellitus; E53.8 Deficiency of other specified B group vitamins; R79.89 Other specified abnormal findings of blood chemistry; Z13.29 Encounter for screening for other suspected endocrine disorder; Z12.5 Encounter for screening for malignant neoplasm of prostate
CPT/HCPCS: 36415; 80053; 82607; 82746; 82747; 84153; 84207; 84443; 85025; G0103